=== PATIENT | female | born 1970 | race Caucasian/White ===

== ENCOUNTER 2018-06-17 08:52 | Outpatient (CLI) | payer BC ==
[2018-06-17 17:55] LABS: BASOPHILS # (AUTO) 0.1 10^3/uL (0.0-0.1); BASOPHILS % (AUTO) 0.9 %; EOSINOPHILS # (AUTO) 0.1 10^3/uL (0.0-0.7); EOSINOPHILS % (AUTO) 1.2 %; HGB - HEMOGLOBIN 13.9 g/dL (12.0-16.0); LYMPHOCYTES % (AUTO) 31.6 %; MEAN CORPUSCULAR HEMOGLOBIN 30.2 pg (27.0-31.0); MEAN CORPUSCULAR HGB CONC 33.2 g/dL (32.0-36.0); MEAN CORPUSCULAR VOLUME 90.7 fL (81.0-99.0); MEAN PLATELET VOLUME 8.6 fL (7.9-10.8); MONOCYTES # (AUTO) 0.6 10^3/uL (0.0-1.0); MONOCYTES % (AUTO) 8.7 %; NEUTROPHILS # (AUTO) 3.7 10^3/uL (1.5-6.6); NEUTROPHILS % (AUTO) 57.6 %; PLT - PLATELET COUNT 317 10^3/uL (130-450); RED BLOOD COUNT 4.62 10^6/uL (4.20-5.40); RED CELL DISTRIBUTION WIDTH 13.8 % (12.0-15.0); WHITE BLOOD COUNT 6.4 x10^3/uL (4.8-10.8)
[2018-06-17 18:36] LABS: PROLACTIN 19.65 ng/mL
[2018-06-17 18:59] LABS: FOLLICLE STIMULATING HORMONE 4.93 mIU/mL
[2018-06-17 19:00] LABS: LUTEINIZING HORMONE 7.5 mIU/mL
== END 2018-06-17 08:53 | disposition home or self-care (01) ==
LOC: LAB.F 08:52
PROVIDERS: ATTEND Naturopath
DX: R59.9 Enlarged lymph nodes, unspecified (principal); N95.1 Menopausal and female climacteric states
CPT/HCPCS: 36415; 81599; 82088; 82157; 82627; 82670; 82947; 83001; 83002; 83498; 83525; 84144; 84146; 84270; 84402; 84403; 85025

== ENCOUNTER 2021-08-06 11:42 | Outpatient (CLI) | payer BC ==
[2021-08-06] MEDS ORDERED: IOVERSOL 320 50 ML VIAL PO ONE (13:25)
[2021-08-06] MEDS ORDERED: IOVERSOL 320 100 ML VIAL IVP ONE (13:25)
--- NOTE | 2021-08-06 13:52 | CT Report ---
PROCEDURE: Abdomen/Pelvis W INDICATIONS: INTRA-ABD AND PELVIC SWELLING, MASS AND LUMP CONTRAST: IV CONTRAST: Optiray 320 ml: 100 PO CONTRAST: Optiray 320 ml50 TECHNIQUE: After the administration of oral and intravenous contrast, 5 mm thick sections acquired from the diap hragms to the symphysis. 5 mm thick coronal and sagittal reformats were acquired. For radiation dos e reduction, the following was used: automated exposure control, adjustment of mA and/or kV accordin g to patient size. COMPARISON: None. FINDINGS: Image quality: Excellent. ABDOMEN: Lung bases: Lung bases are clear. Heart size is normal. Solid organs: Liver and spleen are normal in size and enhancement. Gallbladder is unremarkable. Bi liary system is non dilated. Pancreas enhances normally. No adrenal nodules. Kidneys demonstrate n ormal size and enhancement, without hydronephrosis. Small cyst in the left kidney. Peritoneum and bowel: Elongated appearance of the stomach. Bowel loops demonstrate normal wall thick ness and caliber. Oral contrast in the small bowel. No free fluid or air. Nodes and vessels: No retroperitoneal or mesenteric adenopathy by size criteria. Aorta and inferior vena cava are normal in size. Miscellaneous: No ventral hernias. PELVIS: Genitourinary: Bladder wall thickness is normal. Uterus is retroverted. Miscellaneous: No inguinal hernias. Presumed left groin node measuring 3 cm short axis diameter, (6/ 6). Long axis measures 5 cm. Small peripheral calcification. Bones: No suspicious bony lesions. No vertebral body compression fractures. IMPRESSION: 1. Presumed enlarged left groin node measuring 3 cm short axis diameter. -Recommend targeted ultrasound and ultrasound-guided biopsy. 2. No small bowel obstruction. No free fluid. Reviewed by: Babatunde Toscnao MD on 08/06/2021 12:51 PM [facility] Approved by: Babatunde Toscano MD on 08/06/2021 12:51 PM [facility] Station ID: [id number]
== END 2021-08-06 11:43 | disposition home or self-care (01) ==
LOC: DI 11:42
PROVIDERS: ATTEND Internal Medicine
DX: R19.00 Intra-abdominal and pelvic swelling, mass and lump, unspecified site (principal)
CPT/HCPCS: 74177; Q9967

== ENCOUNTER 2022-01-26 10:28 | Outpatient (CLI) | payer BC | END 2022-01-26 10:29 | disposition home or self-care (01) | LOC: LAB 10:28 | PROVIDERS: ATTEND Surgery | DX: Z01.812 Encounter for preprocedural laboratory examination (principal); K41.31 Unilateral femoral hernia, with obstruction, without gangrene, recurrent; Z20.822 Contact with and (suspected) exposure to COVID-19 ==

== ENCOUNTER 2022-01-27 08:14 | Day surgery (SDC) | payer BC ==
[2022-01-27] MEDS ORDERED: CEFAZOLIN 2G/50ML 0.9% NS 2 GM/50 ML BAG IV ONE (08:35)
[2022-01-27] MEDS ORDERED: LACTATED RINGERS 1,000 ML IV ONE ×2 (08:38→11:46)
--- NOTE | 2022-01-27 09:10 | ANESTHESIA ---
Pre-Anesthesia VS, & Labs - Diagnosis left femoral hernia - Procedure left femoral hernia repair Vital Signs: Temp Pulse Resp BP Pulse Ox 37.0 C 77 16 130/83 H 99 01/27/22 08:26 01/27/22 08:26 01/27/22 08:26 01/27/22 08:26 01/27/22 08:26 Height: 5 ft 3 in Weight (kg): 47.8 kg Body Mass Index: 18.6 BMI Classification: Healthy weight - NPO >8 hours - Is Patient ?: No Home Medications and Allergies none Allergies/Adverse Reactions: Allergies Allergy/AdvReac Type Severity Reaction Status Date / Time No Known Drug Allergies Allergy Verified 01/19/22 14:18 Anes History & Medical History - Anesthetic History Anesthesia Complications: reports: No previous complications - Medical History Cardiovascular: reports: None Pulmonary: reports: None Gastrointestinal: reports: None Urinary: reports: None Neuro: reports: None Musculoskeletal: reports: None Endocrine/Autoimmune: reports: None Blood Disorders: reports: None Skin: reports: None Smoking Status: Never smoker Psychosocial: reports: No issues indicated History of Cancer?: No - Surgical History General: reports: Appendectomy Exam General: Alert, Oriented x3, Cooperative, No acute distress Dental: WNL Mouth Openin Fingerbreadth Neck Mobility: Normal Mallampati classification: I Thyromental Distance: 4-6 cm Respiratory: Lungs clear, Normal breath sounds, No respiratory distress, No accessory muscle use Cardiovascular: Regular rate, Normal S1, Normal S2 Mental/Cognitive Status: Alert/Oriented X3, Normal for patient Plan Anesthesia Type: General Consent for Procedure(s) Verified and Reviewed: Yes Code Status: Attempt Resuscitation ASA classification: 1-Healthy patient Is this case an emergency?: No
[2022-01-27] MEDS ORDERED: ONDANSETRON 4 MG/2 ML VIAL ONE (09:26)
[2022-01-27] MEDS ORDERED: PROPOFOL 200 MG/20 ML VIAL IVP ONE (09:26)
[2022-01-27] MEDS ORDERED: DEXAMETHASONE 4 MG/ML VIAL ONE (09:26)
[2022-01-27] MEDS ORDERED: LIDOCAINE-MPF 2% 5 ML VIAL ONE (09:26)
[2022-01-27] MEDS ORDERED: ROCURONIUM 50 MG/5 ML VIAL ONE (09:26)
[2022-01-27] MEDS ORDERED: fentaNYL 100 MCG/2 ML VIAL ONE ×2 (09:28→12:16)
[2022-01-27] MEDS ORDERED: MIDAZOLAM 2 MG/2 ML VIAL ONE (09:28)
[2022-01-27] MEDS ORDERED: BUPIVACAINE 0.5% PF 30 ML VIAL ONE (09:39)
[2022-01-27] MEDS ORDERED: fentaNYL 100 MCG/2 ML VIAL IVP PRN (09:40)
[2022-01-27] MEDS ORDERED: HYDROmorphone 0.5 MG/0.5 ML SYRINGE IVP PRN ×2 (09:40→11:49)
[2022-01-27] MEDS ORDERED: ATROPINE ABBOJECT 1 MG/10 ML SYRINGE IVP PRN (09:40)
[2022-01-27] MEDS ORDERED: ONDANSETRON 4 MG/2 ML VIAL IVP PRN ×2 (09:40→11:49)
[2022-01-27] MEDS ORDERED: NALOXONE 0.4 MG/ML VIAL IVP PRN (09:40)
[2022-01-27] MEDS ORDERED: MORPHINE 2 MG/ML CARPUJECT IVP PRN (09:40)
[2022-01-27] MEDS ORDERED: LACTATED RINGERS 1,000 ML IV SCH (10:00)
[2022-01-27] MEDS ORDERED: BUPIVACAINE 0.5% PF 30 ML VIAL INFIL ONE ×2 (10:50)
[2022-01-27] MEDS ORDERED: SUGAMMADEX 200 MG/2 ML VIAL IVP ONE (11:33)
[2022-01-27] MEDS ORDERED: KETOROLAC 30 MG/ML VIAL ONE (11:35)
[2022-01-27] MEDS ORDERED: LACTATED RINGERS 100 ML IV ONE (11:42)
[2022-01-27] MEDS ORDERED: HYDROcod/ACETAM 5/325 MG TABLET PO PRN (11:49)
--- NOTE | 2022-01-27 11:52 | OPERATIVE REPORT ---
Operative Report - General Procedure Date: 01/27/22 Planned Procedure: Incarcerated LEFT femoral herniorrhaphy Pre-Op Diagnosis: Incarcerated LEFT femoral hernia Procedure Performed: Incarcerated LEFT femoral herniorrhaphy with mesh Post Op Diagnosis: Incarcerated LEFT femoral hernia - Procedure Note Primary Surgeon: Ludwin Rodas MD Anesthesia Provider: Inderjit Kaye supervised/proctored actively by Estelle Fried CRNA Anesthesia Technique: General LMA, Local (10 mL of half percent Marcaine) IV Fluids (mL): 500 Estimated Blood Loss (mL): 5 Drain/Tube Type: Other (None.) Indications: Incarcerated LEFT femoral hernia (small incarcerated omentum) Findings: As above. Complications: None. - Other Other Information/Narrative: After verbal and written informed consent was obtained detailing the operation, the alternatives the operation including no operation, risks of infection, bleeding requiring transfusion with its risks, nerve injury, and and after I met with the patient confirming the surgery and the site of surgery, the patient was brought to the operative suite and placed supine on the operating table. Great care was taken to avoid pressure points to prevent pressure necrosis or nerve injury. Monitoring devices were applied along with TEDs and pneumatic compression stockings (to prevent DVT). The patient received preoperative antibiotics for surgical prophylaxis. INDERJIT Kaye under the direct guidance of Estelle Fried CRNA sedated and anesthetized the patient for the entire procedure. The patient was prepped and draped in the usual sterile manner. With the patient draped my initials were clearly visible. A "time in" then confirmed that the patient was identified with 3 identifiers (name, date, and medical record number), the history and physical was updated and in the chart, the signed consent confirming the procedure was in the chart, the patient was in the correct position, the aforementioned prophylactic measures were in place or given, we had the correct personnel and equipment to complete the procedure and that anesthesia and the surgical team were given an opportunity to express any concerns. With the agreement of everyone in the room we proceeded with the operation. A standard feoral incision was made and dissection was carried down to the hernia sac which was noted to be coming from the inguinal crease just medial to the left femoral vein. The sac itself was open with return of the significant amount of serous fluid. There were multiple loculations within the sac. There was a portion of omentum that was incarcerated within the hernia itself. This was transected at the hernia opening using Bovie electrocautery taking great care to ensure that there was no bleeding. The stump was then placed back into the abdomen. A piece of Bard polypropylene mesh (Lot # [id number], reference #[id number], use by date 2026-09-22) was rolled into a cigar shaped and 2-0 PDS was sutured through this to keep this in the shape. This was then secured in the opening with interrupted 2-0 PDS as well as 3-0 Vicryl thus closing the femoral defect. The entire area both deep and superficial was injected using half percent Marcaine. A total of 10 mL of half percent Marcaine was used. More local was not used out of concern that I had for inadvertently creating a femoral block. The skin incision was approximated with 4-0 Monocryl in a subcuticular fashion. The skin was cleaned of its prep and Dermabond was applied. At this point a timeout was performed that confirmed that all counts were correct x2, the procedure that was performed, the blood loss, the IV fluids administered, the patient's condition, and any concerns of the operating team had. Having tolerated the procedure well, the patient was taken recovery room in good and stable condition. The plan is for outpatient discharge when the patient is adequately recovered. This document was created in part using voice recognition technology. Because of the inherent limitations of the system, occasional same sounding word substitutions and grammatical errors do occur and persist despite proofreading. Please read this document for content. CPT 55324
[2022-01-27 13:09] VITALS: BP 136/90
--- NOTE | 2022-01-27 15:15 | ANESTHESIA POST OP EVALUATION ---
Anesthesia Post Eval - Post Anesthesia Eval Vitals: Last Vital Signs Temp 36.7 C 01/27/22 13:09 Pulse 65 01/27/22 13:09 Resp 16 01/27/22 13:09 BP 136/90 H 01/27/22 13:09 Pulse Ox 100 01/27/22 13:09 CV Function Including HR & BP: Stable Pain Control: Satisfactory Nausea & Vomiting: Negative Mental Status: Baseline Respiratory Status: Airway Patent Hydration Status: Satisfactory Anesthesia Complications: None
== END 2022-01-27 08:15 | disposition home or self-care (01) ==
LOC: SDS 08:14
PROVIDERS: ATTEND Surgery
DX: K41.30 Unilateral femoral hernia, with obstruction, without gangrene, not specified as recurrent (principal)
CPT/HCPCS: 49553; C1781; J0690; J7120

== ENCOUNTER 2022-08-29 10:08 | Outpatient (CLI) | payer BC ==
--- NOTE | 2022-08-29 20:01 | XRAY Report ---
PROCEDURE: Shoulder 3 View BILAT INDICATIONS: BILATERAL SHOULDER PAIN TECHNIQUE: 3 views of the shoulder were acquired. COMPARISON: None. FINDINGS: Bones: No fractures or dislocations. Minimal degenerative change at the AC joints bilaterally. No michaud spicious bony lesions. Visualized ribs appear intact. Soft tissues: No suspicious soft tissue calcifications. IMPRESSION: Minimal degenerative change at the AC joints bilaterally. Reviewed by: Babatunde Toscano MD on 08/29/2022 8:00 PM PDT Approved by: Babatunde Toscano MD on 08/29/2022 8:00 PM PDT Station ID: [id number]
== END 2022-08-29 10:09 | disposition home or self-care (01) ==
LOC: DI 10:08
PROVIDERS: ATTEND Nurse Practitioner Family
DX: M19.011 Primary osteoarthritis, right shoulder (principal)

== ENCOUNTER 2023-08-06 06:33 | Day surgery (SDC) | payer BC ==
[2023-08-06] MEDS: LACTATED RINGERS 1,000 ML IV ONE ×2 (06:37→08:02)
[2023-08-06 06:47] VITALS: O2SAT 100
--- NOTE | 2023-08-06 07:14 | ANESTHESIA ---
Pre-Anesthesia VS, & Labs - Diagnosis screening exam - Procedure colonoscopy Vital Signs: Temp Pulse Resp BP Pulse Ox O2 Flow Rate 36.2 C L 63 16 128/71 100 08/06/23 06:41 08/06/23 06:41 08/06/23 06:41 08/06/23 06:41 08/06/23 06:41 Height: 5 ft 2 in Weight (kg): 48.5 kg Body Mass Index: 19.5 BMI Classification: Normal - NPO >8 hours - Is Patient ?: No Home Medications and Allergies Allergies/Adverse Reactions: Allergies Allergy/AdvReac Type Severity Reaction Status Date / Time No Known Drug Allergies Allergy Verified 01/19/22 14:18 Anes History & Medical History - Anesthetic History Anesthesia Complications: reports: Post-Operative Nausea/Vomiting - Medical History Cardiovascular: reports: None Pulmonary: reports: None Gastrointestinal: reports: None Urinary: reports: None Neuro: reports: None Musculoskeletal: reports: None Endocrine/Autoimmune: reports: None Blood Disorders: reports: None Skin: reports: None Smoking Status: Never smoker Psychosocial: reports: No issues indicated History of Cancer?: No - Surgical History General: reports: Appendectomy Exam General: Alert, Oriented x3, Cooperative, No acute distress Dental: WNL Mouth Openin Fingerbreadth Neck Mobility: Normal Mallampati classification: I Thyromental Distance: 4-6 cm Mental/Cognitive Status: Alert/Oriented X3, Normal for patient Plan Anesthesia Type: General, Total IV Consent for Procedure(s) Verified and Reviewed: Yes Code Status: Attempt Resuscitation ASA classification: 1-Healthy patient Is this case an emergency?: No
[2023-08-06 07:16] LABS: HCG UR QUAL NEGATIVE
[2023-08-06] MEDS ORDERED: PROPOFOL 500 MG/50 ML 500 MG/50 ML VIAL ONE (07:17)
--- NOTE | 2023-08-06 08:39 | ANESTHESIA POST OP EVALUATION ---
Anesthesia Post Eval - Post Anesthesia Eval Vitals: Last Vital Signs Temp 36.8 C 08/06/23 08:35 Pulse 67 08/06/23 08:35 Resp 16 08/06/23 08:35 BP 107/65 08/06/23 08:35 Pulse Ox 100 08/06/23 08:35 O2 Flow Rate CV Function Including HR & BP: Stable Pain Control: Satisfactory Nausea & Vomiting: Negative Mental Status: Baseline Respiratory Status: Airway Patent Hydration Status: Satisfactory Anesthesia Complications: None
[2023-08-06 08:46] VITALS: BP 107/65
== END 2023-08-06 06:34 | disposition home or self-care (01) ==
LOC: SDS 06:33
PROVIDERS: ATTEND Surgery
DX: Z12.11 Encounter for screening for malignant neoplasm of colon (principal); K64.1 Second degree hemorrhoids
CPT/HCPCS: 45378; 81025; J7120

== ENCOUNTER 2023-11-22 08:52 | Outpatient (CLI) | payer BC ==
--- NOTE | 2023-11-23 01:14 | XRAY Report ---
PROCEDURE: Lumbar Spine 4V INDICATIONS: CHRONIC LOW BACK PAIN TECHNIQUE: 4 view(s) of the lumbar spine were acquired. COMPARISON: None. FINDINGS: Bones: Vertebral body height and alignment is maintained. No suspicious bony lesions. Convex right l umbar scoliosis. Oblique images unremarkable. Disc space narrowing and hypertrophic facet joints lowe r lumbar spine Soft tissues: Overlying bowel gas pattern is normal. No suspicious soft tissue calcifications. 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 Thoracolumbar dextroscolio sis Reviewed by: Girma Dyer MD on 11/23/2023 12:13 AM [facility] Approved by: Girma Dyer MD on 11/23/2023 12:13 AM [facility] Station ID: [email or web address]
== END 2023-11-22 08:53 | disposition home or self-care (01) ==
LOC: DI.S 08:52
PROVIDERS: ATTEND Nurse Practitioner Family
DX: M47.816 Spondylosis without myelopathy or radiculopathy, lumbar region (principal); M41.9 Scoliosis, unspecified

== ENCOUNTER 2024-02-11 08:04 | Outpatient (CLI) | payer BC ==
--- NOTE | 2024-02-11 14:11 | Ultrasound Report ---
PROCEDURE: Abdomen Complete INDICATIONS: EPIGASTRIC PAIN TECHNIQUE: Real-time scanning was performed of the abdominal and retroperitoneal organs, with image documentatio n. COMPARISON: CT abdomen and pelvis with contrast 08/06/2021 FINDINGS: Liver: Liver is normal in size and heterogenous in echotexture. Mildly hyperechoic parenchyma. Gallbladder: No gallstones, sludge, wall thickening or pericholecystic edema. Biliary ducts: Intrahepatic bile ducts are non-dilated. Extrahepatic bile duct caliber measures 3 m m. Normal is 6-7 mm or less in diameter, or 10 mm or less post-cholecystectomy. Pancreas: Visualized portions of the pancreas are sonographically normal. Spleen: Spleen is normal in size at 7 cm and homogeneous in echotexture. Kidneys: Kidneys are normal in size and echotexture. Right kidney measures 9.4 cm long; left kidney measures 10.1 cm long. No hydronephrosis or nephrolithiasis. No solid masses. No complex renal cys tic lesions which require follow-up. Aorta: Visualized aorta is normal in caliber at less than 3 cm. Iliacs: Proximal common iliac arteries are normal in caliber at less than 2.5 cm. IVC: Intrahepatic inferior vena cava is patent. Miscellaneous: No free abdominal fluid. IMPRESSION: Hepatic steatosis versus underlying hepatocellular disease. Reviewed by: Marcio Paris MD on 02/11/2024 2:10 PM PDT Approved by: Marcio Paris MD on 02/11/2024 2:10 PM PDT Station ID: [id number]
== END 2024-02-11 08:05 | disposition home or self-care (01) ==
LOC: DI 08:04
PROVIDERS: ATTEND Nurse Practitioner Family
DX: R10.13 Epigastric pain (principal)